=== PATIENT | male | born 1985 | race Caucasian/White ===

== ENCOUNTER 2020-10-13 18:02 | Emergency (ER) | payer BC ==
[~2020-10-13] VITALS: Ht 188 cm; Wt 116.0 kg
[2020-10-13 18:23] VITALS: BP 155/106
[2020-10-13] MEDS ORDERED: ONDANSETRON ODT 4 MG PO ONE (18:30)
[2020-10-13] MEDS ORDERED: OXYcodone/APAP 5/325MG TABLET PO ONE (18:30)
[2020-10-13] MEDS ORDERED: ONDANSETRON ODT 4 MG ONE (19:58)
[2020-10-13] MEDS ORDERED: OXYcodone/APAP 5/325MG TABLET ONE (19:58)
== END 2020-10-13 20:47 | disposition home or self-care (01) ==
LOC: ED 19:52
DX: S43.102A Unspecified dislocation of left acromioclavicular joint, initial encounter (principal); W01.0XXA Fall on same level from slipping, tripping and stumbling without subsequent striking against object, initial encounter; Y93.89 Activity, other specified; Y92.009 Unspecified place in unspecified non-institutional (private) residence as the place of occurrence of the external cause; Y99.8 Other external cause status
CPT/HCPCS: 73030; 99283; Q0162